=== PATIENT | male | born 1940 | race Caucasian/White ===

== ENCOUNTER 2016-11-06 20:55 | Emergency (ER) | payer OTHER ==
[~2016-11-06] VITALS: Ht 172.7 cm; Wt 93.0 kg
[~2016-11-06 20:55] MED LIST: ACET325T11 PO; ATOR40TA PO; BRIM0.2S; CALCTAB38; CO Q100C9 PO; GLUCTAB6 PO; LORA0.5T PO; METO100T9 PO; MULT1TAB46 PO; NORC10TA2 PO; OMEP20CA5 PO; PERI8.6T PO; POLY119S PO; WARF5TAB PO; Z.0.WALKERFRONT; Z.0.WALKERPLAT
[2016-11-06 21:09] VITALS: BP 145/74; PULSE 60; RESP 18; TEMP 98.7; O2SAT 94
--- NOTE | 2016-11-06 21:44 | PD ---
HPI . Hematuria Chief Complaint: Complaint Time Seen by Provider: 21:38 Travel History International Travel<30 days: No Contact w/Intl Traveler<30days: No History of Present Illness HPI Patient presents with hematuria. Onset was today. He reports that he called his insurance company and was told to come in to have his INR checked because he is on warfarin. He reports no recent changes in his medication. Force no recent changes in his diet. He states that his last INR was about a week and a half ago and was 2.2. He denies any urinary symptoms such as dysuria, frequency or urgency. He has not been running a fever. He denies any flank or abdominal pain. PFSH Past Medical History Arthritis: Yes Atrial Fibrillation: Yes Blood Disorders: No Anxiety: Yes Depression: No Heart Rhythm Problems: Yes (AFIB) Cancer: No Cardiac Catheterization: No Cardiovascular Problems: Yes (a fib) High Cholesterol: Yes Chest Pain: Yes Congestive Heart Failure: No Diabetes: No Diminished Hearing: No Endocrine: No Gastrointestinal Disorders: Yes (GERD, Hiatal Hernia, GI Bleed) GERD: Yes Glaucoma: No Genitourinary: Yes (TURP) Hepatitis: No Hiatal Hernia: Yes Hypertension: No Immune Disorder: No Musculoskeletal: Yes (Arthritis) Neurologic: Yes (carpal tunnel both and ) Psychiatric: Yes Reproductive: No Respiratory: Yes 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) Thyroid Disease: No Ulcer: Yes (MANY YEARS AGO) PNEUMOCCOCAL Vaccine (Year): 1 Past Surgical History Abdominal Surgery: No AICD: No Cardiac Surgery: No Coronary Artery Bypass Graft: No Ear Surgery: No Endocrine Surgery: No Eye Surgery: Yes (l eye catarct eye) Genitourinary Surgery: Yes (TURP) Gynecologic Surgery: No Joint Replacement: No Oral Surgery: No Pacemaker: No Thoracic Surgery: No Tonsillectomy: Yes Other Surgery: Yes (Cataract, Carpal Tunnel, Laser Eye, TURP) Social History Alcohol Use: Yes (SOCIALLY) Tobacco Use: No (QUIT IN 1999) Substance Use: No Allergies-Medications (Allergen,Severity, Reaction): Coded Allergies: No Known Allergies (Verified , 11/06/16) Reported Meds & Prescriptions Reported Meds & Active Scripts Active Reported Warfarin 4 Mg Tab 4 Mg PO DAILY Prilosec (Omeprazole) 20 Mg Cap 20 Mg PO DAILY Metoprolol Succinate ER 24 HR (Metoprolol Succinate) 50 Mg Tab 50 Mg PO DAILY Lorazepam 0.5 Mg Tab 0.5 Mg PO DAILY PRN Atorvastatin (Atorvastatin Calcium) 40 Mg Tab 40 Mg PO HS Review of Systems Except as stated in HPI: all other systems reviewed are Neg General / Constitutional: No: Fever, Chills Gastrointestinal: No: Nausea, Vomiting, Diarrhea, Abdominal Pain Genitourinary: Positive: Hematuria, No: Urgency, Frequency, Dysuria Physical Exam Narrative GENERAL: Awake and alert and in no acute distress. SKIN: Warm and dry. CARDIOVASCULAR: Regular rate and rhythm. RESPIRATORY: No accessory muscle use. GI/: Abdomen is soft and nontender. There is no CVA tenderness. MUSCULOSKELETAL: No obvious deformities. No edema. NEUROLOGICAL: Awake and alert. No obvious cranial nerve deficits. Motor grossly within normal limits. Normal speech. PSYCHIATRIC: Appropriate mood and affect; insight and judgment normal. Data Data Last Documented VS Vital Signs Date Time Temp Pulse Resp B/P Pulse Ox O2 Delivery O2 Flow Rate FiO2 11/06/16 21:09 98.7 60 18 145/74 94 Orders Urinalysis - C+S If Indicated (11/06/16 21:38) Prothrombin Time / Inr (Pt) (11/06/16 21:38) Labs Laboratory Tests Test 11/06/16 11/06/16 21:00 22:20 Urine Color BROWN Urine Turbidity MARKED Urine pH 5.5 Urine Specific [place] 1.024 Urine Protein 100 mg/dL Urine Glucose (UA) NEG mg/dL Urine Ketones TRACE mg/dL Urine Occult Blood LARGE Urine Nitrite NEG Urine Bilirubin NEG Urine Leukocyte Esterase TRACE Urine RBC INNUM /hpf Urine WBC 3-5 /hpf Urine Squamous Epithelial 0-5 /hpf Cells Urine Mucus MOD /lpf Urine Yeast (Budding) MOD Microscopic Urinalysis Comment CULT NOT INDICATED Prothrombin Time 38.0 SEC Prothromb Time International 3.3 RATIO Ratio MDM Medical Decision Making Medical Screen Exam Complete: Yes Emergency Medical Condition: Yes Differential Diagnosis Differential diagnosis of hematuria includes but is not limited to UTI, prostatitis, ruptured blood vessel, bladder cancer, kidney stone, coagulopathy Narrative Course Patient presents complaining with hematuria. He has no other urinary symptoms. He is on warfarin. INR is 3.3. UA shows trace leukocyte esterase as well as numerous red blood cells. I will have him hold his Coumadin for 1 dose. I will presume urinary tract infection and treat him with Keflex. Diagnosis Primary Impression: Hematuria Additional Impressions: UTI (urinary tract infection) Qualified Code: N30.01 - Acute cystitis with hematuria Warfarin-induced coagulopathy Patient Instructions: General Instructions, Urinary Tract Infection in Children (GEN), Warfarin Toxicity (ED) Additional Instructions: Hold your next dose of warfarin. Keflex for bladder infection. See your doctor in 2 days to have your INR rechecked. Med/Other Pt SpecificInfo: Prescription(s) given Scripts Cephalexin (Keflex)500 Mg Qmq288 Mg PO Q8H #21 CAP Ref 0 Prov:Amelia Rose MD 11/06/16 Disposition: 01 DISCHARGE HOME Condition: Stable Amelia Rose MD Nov 06, 2016 21:44
[2016-11-06] MEDS ORDERED: PRIL20CA9 PO (21:45)
[2016-11-06] MEDS ORDERED: WARF-20 PO (21:45)
[2016-11-06] MEDS ORDERED: LORA-373 PO (21:45)
[2016-11-06] MEDS ORDERED: METO50TA11 PO (21:45)
[2016-11-06] MEDS ORDERED: ATOR40TA16 PO (21:45)
[2016-11-06 22:07] LABS: BLOOD, URINE LARGE (NEG); GLUCOSE,URINE NEG (NEG); KETONE, URINE TRACE mg/dL (NEG); NITRITE,URINE NEG (NEG); PH, URINE 5.5 (5.0-8.5)
[2016-11-06 22:24] LABS: URINE COLOR BROWN (YELLW/STRAW)
[2016-11-06 22:25] LABS: MUCUS URINE MOD /lpf (OCC); RBC, URINE INNUM /hpf (0-3)
[2016-11-06 22:26] LABS: SQUAMOUS EPITHELIAL CELL URINE 0-5 /hpf (0-5)
[2016-11-06 22:27] LABS: COMMENT (UR) CULT NOT INDICATED; CULTURE IF INDICATED CULT NOT INDICATED
[2016-11-06 22:52] LABS: INTERNATIONAL NORMALIZED RATIO 3.3 RATIO
[2016-11-06] MEDS ORDERED: CEPH-460 PO (23:00)
[2016-11-06] MEDS ORDERED: CEPHALEXIN MONOHYDRATE 500 MG CAP PO ONE (23:15)
[2016-11-06 23:16] VITALS: BP 147/80; PULSE 57; RESP 16; O2SAT 94
== END 2016-11-06 23:29 | disposition home or self-care (01) ==
LOC: PHED 20:55
DX: N30.01 Acute cystitis with hematuria (principal); D68.32 Hemorrhagic disorder due to extrinsic circulating anticoagulants; E78.00 Pure hypercholesterolemia, unspecified; Z79.01 Long term (current) use of anticoagulants; Z87.39 Personal history of other diseases of the musculoskeletal system and connective tissue; Z86.79 Personal history of other diseases of the circulatory system; Z86.59 Personal history of other mental and behavioral disorders; Z87.19 Personal history of other diseases of the digestive system; Z87.448 Personal history of other diseases of urinary system; Z86.69 Personal history of other diseases of the nervous system and sense organs; Z87.891 Personal history of nicotine dependence
CPT/HCPCS: 81001; 85610; 99283

== ENCOUNTER → 2017-02-27 | Outpatient (CLI) | payer OTHER ==
[~2017-02-27] MED LIST changes: -ACET325T11 PO; -ATOR40TA PO; +ATOR40TA16 PO; -BRIM0.2S; -CALCTAB38; +CEPH-460 PO; -CO Q100C9 PO; -GLUCTAB6 PO; +LORA-373 PO; -LORA0.5T PO; -METO100T9 PO; +METO50TA11 PO; -MULT1TAB46 PO; -NORC10TA2 PO; -OMEP20CA5 PO; -PERI8.6T PO; -POLY119S PO; +PRIL20CA9 PO; +WARF-20 PO; -WARF5TAB PO; -Z.0.WALKERFRONT; -Z.0.WALKERPLAT
[2017-02-27 07:56] LABS: BLOOD GAS CARBOXYHEMOGLOBIN 1.5 % (0-4); BLOOD GAS HCO3 24 mmol/L (22-26); BLOOD GAS METHEMOGLOBIN 0.9 % (0-2); BLOOD GAS O2 HGB SATURATION 94 % (90-100); BLOOD GAS OXYGEN CONTENT 18.6 Vol % (12.0-20.0); BLOOD GAS PCO2 38 mmHG (38-42); BLOOD GAS PO2 78 mmHG (61-120); BLOOD GAS TOTAL HGB 14.1 G/DL (12.0-16.0); CRITICAL VALUE NO; DRAW SITE RT RADIAL; FIO2 21 %; NUMBER OF ARTERIAL PUNCTURES 1; STAT NO; TEMP CORR TO 98.6; ULNAR PULSE PRESENT
--- NOTE | 2017-02-28 09:16 | RSPPFT ---
DATE OF PROCEDURE: 02/27/17 COMMENTS: Spirometry shows FVC of 3.6 at 105% of predicted, FEV1 of 2.0 at 77%, FEV1/FVC ratio is decreased. Flow is decreased at FEF 25, FEF 50, FEF 75 and FEF 25-75. There is a mild response after acutely inhaled bronchodilator treatment. Lung volumes show residual volume is normal. TLC is normal. Diffusion capacity is normal. Flow volume loop indicates an obstructive pattern. Room air arterial blood gases show pH of 7.42, PCO2 of 38, PO2 of 78, BiCarb of 24 and O2 Saturation at 94%. 6-minute walk test shows no de-saturation. IMPRESSION: 1. Mild obstructive lung disease. 2. Mild response after bronchodilator treatment. 3. Normal lung volumes. 4. Diffusion capacity is normal. 5. Blood gases show normal oxygenation and no de-saturation on walk test.
== END ==
LOC: PHRSP 07:35
PROVIDERS: ATTEND Family Medicine
DX: R06.00 Dyspnea, unspecified (principal)
CPT/HCPCS: 36600; 82805; 94060; 94620; 94726; 94729